=== PATIENT | female | born 1945 | race African-American/Black ===

== ENCOUNTER 2018-12-19 20:37 | Inpatient (IN) | payer MEDICARE ==
[~2018-12-19] VITALS: Ht 167.6 cm; Wt 92.5 kg
[2018-12-20] MEDS ORDERED: MAGNESIUM HYDROXIDE 30 ML UDC PO PRN (01:30)
[2018-12-20] MEDS ORDERED: MAG HYDROX/AL HYDROX/SIMETH 30 ML UDC PO PRN (01:30)
[2018-12-20] MEDS ORDERED: LOSA1TAB42 PO (01:42)
[2018-12-20] MEDS ORDERED: HYDR-4384 PO (01:42)
[2018-12-20] MEDS ORDERED: METO25TA6 PO (01:42)
[2018-12-20] MEDS ORDERED: BACL10TA PO (01:42)
[2018-12-20] MEDS ORDERED: ATOR40TA PO (01:42)
[2018-12-20] MEDS ORDERED: HYDR12.5 PO (01:42)
[2018-12-20] MEDS ORDERED: MECL-102 PO (01:42)
[2018-12-20] MEDS ORDERED: DOCU100C36 PO (01:42)
[2018-12-20] MEDS ORDERED: ASPI-605 PO (01:42)
[2018-12-20 02:42] VITALS: BP 115/65
--- NOTE | 2018-12-20 04:45 | NUR ---
ADMISSION NOTES: ADMITTED THIS 73 Y/O MALE FROM [facility] , PATIENT INTIALLY FROM HOME, AND FIRST CAME ON ADMISSION ,PT. ADMITTED FOR VOLUNTARY STATUS, PT. BEHAVIOR WAS VERY BIZARRE,AGGRESSIVE , UNCOOPERTIVE DISORGNIZED ,CONFUSED,DISTRACTIBLE, NOT FOLLOWING ANY REDIRECTIONS AND INSTRUCTIONS. CHARGE NURSE AND NURSING SHIPPING RECEIVING CLERK CALLED CRISIS INTERLACER TO REEVALUATE PATIENT. CRISIS INTERLACER ASSESSED THE PATIENT AND PUT ON 5150 HOLD FOR DTS/DTO. PER HOLD PATIENT AGGRESSIVE TOWARDS HER FAMILY AND CAREGIVER ,PT. THROWS OBJECTS WITH THE INTENT TO HURT THOSE AROUND HER, PT. HAS HX OF LOCKING HERSELF IN ROOMS DUE TO HER PARANOIA UPON FACE TO FACE ASSESSMENT PATIENT IS A&O X-1,2 UNCOOPERTIVE, CONFUSED , PARANOIA , AGGRESSIVE ,EASILY AGITATED , EASILY DISTRACTIBLE, RESPONDING TO INTERNAL STIMULI , PT.IS POOR HISTORIAN, POOR INSIGHT ,POOR JUDGEMENT ,V/S WNL, NO ACUTE DISTRESS NOTED , AWARE AND NOTIFIED OF THE ADMISSION , PT. REFUSED SKIN ASSESSMENT ENCOURAGED EXPLAINED RISKS AND BENEFITS BUT STILL REFUSED, ENCOURAGED PT. VERBALIZED ANY FEELING CONCERN TO STAFF, ORIENT TO UNIT POLICY, WILL CONTINUE TO MONITOR FOR Q15, CONTRACT FOR SAFETY AND BEHAVIOR.
--- NOTE | 2018-12-20 06:45 | NUR ---
GPS RN NOTES : PT. REFUSED SKIN ASSESSMENT ,ENCOURAGED EXPLINED RISKS AND BENEFITS ,STILL REFUSED
[2018-12-20 08:00] VITALS: BP 125/63
[2018-12-20] MEDS: HYDROCODONE/APAP 5/325MG 1 EACH TABLET PO PRN (13:05)
[2018-12-20 13:07] LABS: BASOPHILS % (AUTO) 0.9 % (0.0-2.0); EOSINOPHILS % (AUTO) 3.4 % (0.0-6.0); HEMATOCRIT 32 % (33-45); HEMOGLOBIN 10.3 g/dL (11.5-14.8); LYMPHOCYTES # (AUTO) 1.4 /CMM (0.8-4.8); LYMPHOCYTES % (AUTO) 25.1 % (20.0-44.0); MEAN CORPUSCULAR HGB CONC 33 g/dl (31.0-36.0); MEAN CORPUSCULAR VOLUME 88 fL (82-100); MONOCYTES # (AUTO) 0.7 /CMM (0.1-1.30); MONOCYTES % (AUTO) 12.5 % (2.0-12.0); NEUTROPHILS # (AUTO) 3.1 /CMM (1.8-8.9); NEUTROPHILS % (AUTO) 58.1 % (43.0-81.0); PLATELET COUNT (AUTO) 201 /CMM (150-450); RED BLOOD CELL COUNT(AUTO) 3.61 MIL/uL (4.0-5.2); WHITE BLOOD COUNT (AUTO) 5.4 K/uL (4.3-11.0)
[2018-12-20 13:16] LABS: CHOLESTEROL 166 mg/dL (<200); HDL CHOLESTEROL 66 mg/dL (40-60); LDL 84 mg/dL (0-99); TRIGLYCERIDES 73 mg/dL (30-150)
[2018-12-20 13:22] LABS: CALCIUM, SERUM 10.6 mg/dL (8.5-10.1); CARBON DIOXIDE 27 mmol/L (21-32); CHLORIDE 109 mmol/L (98-107); CREATININE 1.1 mg/dL (0.6-1.3); GLUCOSE 106 mg/dL (74-106); POTASSIUM 3.9 mmol/L (3.5-5.1); SODIUM SERUM 143 mmol/L (136-145); UREA NITROGEN, BLOOD 18 mg/dL (7-18)
[2018-12-20] MEDS: MECLIZINE HCL 25 MG TABLET PO SCH ×3 (14:08→21:41)
[2018-12-20 14:20] LABS: ALBUMIN 3.5 g/dL (3.4-5.0); BILIRUBIN,DIRECT 0.1 mg/dL (0.0-0.2); BILIRUBIN,TOTAL 0.3 mg/dL (0.2-1.0); TOTAL PROTEIN, SERUM 7.8 g/dL (6.4-8.2)
[2018-12-20 16:00] VITALS: BP 134/81
[2018-12-20] MEDS: DOCUSATE SODIUM 100 MG CAPSULE PO SCH (17:12)
[2018-12-20] MEDS: DIVALPROEX SODIUM 125 MG TABLET.DR PO SCH (17:13)
[2018-12-20] MEDS: METOPROLOL TARTRATE 25 MG TABLET PO SCH (17:13)
[2018-12-20 20:15] VITALS: BP 158/86
[2018-12-20] MEDS: DIVALPROEX SODIUM 250 MG TABLET.DR PO SCH (21:41)
[2018-12-20] MEDS: TEMAZEPAM 7.5 MG CAPSULE PO PRN (21:41)
[2018-12-20] MEDS: BACLOFEN (10 MG) 10 MG TABLET PO SCH (21:41)
[2018-12-20] MEDS ORDERED: MOXI3DRO13 RIGHTEYE (22:03)
[2018-12-20] MEDS ORDERED: KETO5DRO39 RIGHTEYE (22:03)
[2018-12-20] MEDS ORDERED: PRED5DRO17 RIGHTEYE (22:03)
--- NOTE | 2018-12-21 06:23 | NUR ---
WILL ENDORSE TO AM PRIMARY NURSE ABOUT THE EYEDROPS THAT NEEDS TO BE RECONCILED.PER PATIENT SON ,PATIENT HAD HER RIGHT EYE CATARACT SURGERY LAST November.
--- NOTE | 2018-12-21 06:34 | NUR ---
Refused weekly skin assessment. Offered x3 and still refused.
[2018-12-21 08:00] VITALS: BP 136/90
[2018-12-21] MEDS: HYDROCHLOROTHIAZIDE 25 MG TABLET PO SCH (08:44)
[2018-12-21] MEDS: DIVALPROEX SODIUM 125 MG TABLET.DR PO SCH ×2 (08:45→16:19)
[2018-12-21] MEDS: LOSARTAN POTASSIUM 50 MG TABLET PO SCH (08:45)
[2018-12-21] MEDS: DOCUSATE SODIUM 100 MG CAPSULE PO SCH ×2 (08:45→16:19)
[2018-12-21] MEDS: METOPROLOL TARTRATE 25 MG TABLET PO SCH ×2 (08:49→16:20)
[2018-12-21] MEDS: ASPIRIN EC 81 MG TABLET.DR PO SCH (08:53)
[2018-12-21] MEDS: MECLIZINE HCL 25 MG TABLET PO SCH ×4 (08:56→21:22)
--- NOTE | 2018-12-21 11:59 | NUR ---
NISHI contacted pts paul Cole [phone] for discharge planning and collateral information. Son stated pt needs SNF placement as she is unable to care for herself at home.
[2018-12-21 12:23] LABS: BASOPHILS % (AUTO) 0.5 % (0.0-2.0); EOSINOPHILS % (AUTO) 2.4 % (0.0-6.0); HEMATOCRIT 32 % (33-45); HEMOGLOBIN 10.4 g/dL (11.5-14.8); LYMPHOCYTES # (AUTO) 1.3 /CMM (0.8-4.8); MEAN CORPUSCULAR HGB CONC 33 g/dl (31.0-36.0); MEAN CORPUSCULAR VOLUME 88 fL (82-100); MONOCYTES # (AUTO) 0.7 /CMM (0.1-1.30); MONOCYTES % (AUTO) 11.7 % (2.0-12.0); NEUTROPHILS # (AUTO) 3.8 /CMM (1.8-8.9); NEUTROPHILS % (AUTO) 63.4 % (43.0-81.0); PLATELET COUNT (AUTO) 205 /CMM (150-450); RED BLOOD CELL COUNT(AUTO) 3.63 MIL/uL (4.0-5.2)
[2018-12-21 12:38] LABS: ALANINE AMINOTRANSFERASE 37 U/L (12-78); ALBUMIN 3.4 g/dL (3.4-5.0); ALKALINE PHOSPHATASE 76 U/L (46-116); ASPARTATE AMINOTRANSFERASE 31 U/L (15-37); BILIRUBIN,TOTAL 0.3 mg/dL (0.2-1.0); CALCIUM, SERUM 10.2 mg/dL (8.5-10.1); CARBON DIOXIDE 28 mmol/L (21-32); CHLORIDE 109 mmol/L (98-107); CREATININE 1.1 mg/dL (0.6-1.3); GLUCOSE 125 mg/dL (74-106); MAGNESIUM 2.1 mg/dL (1.8-2.4); PHOSPHORUS 2.6 mg/dL (2.5-4.9); POTASSIUM 3.6 mmol/L (3.5-5.1); SODIUM SERUM 146 mmol/L (136-145); TOTAL PROTEIN, SERUM 7.5 g/dL (6.4-8.2); UREA NITROGEN, BLOOD 16 mg/dL (7-18)
--- NOTE | 2018-12-21 12:40 | NUR ---
INITIAL DISCHARGE PLAN: Pt wishes to return home [address] [facility] [id number] . Per son Douglas [phone] pt needs SNF placement as pt is unable to care for herself at home. NISHI will help form a safe and proper discharge in collaboration with .
[2018-12-21 13:03] LABS: CHOLESTEROL 161 mg/dL (<200); HDL CHOLESTEROL 63 mg/dL (40-60); LDL 85 mg/dL (0-99); TRIGLYCERIDES 59 mg/dL (30-150)
[2018-12-21] MEDS: prednisoLONE ACETATE 1% SUSP 5 ML BOTTLE RIGHTEYE SCH ×3 (13:45→21:22)
[2018-12-21 16:00] VITALS: BP 109/70
[2018-12-21 18:26] LABS: APPEARANCE,URINE CLEAR (CLEAR); BILIRUBIN,URINE NEGATIVE (NEGATIVE); BLOOD, URINE NEGATIVE Ery/uL (NEGATIVE); COLOR,URINE YELLOW (YELLOW); KETONES,URINE TRACE (NEGATIVE); LEUKOCYTE ESTERASE ,URINE NEGATIVE (NEGATIVE); NITRITE, URINE NEGATIVE (NEGATIVE); PH,URINE 5.5 (5.0-8.0); PROTEIN,URINE 1+ mg/dl (NEGATIVE); UGLUCOSE NEGATIVE (NEGATIVE); UROBILINOGEN,URINE 0.2 EU/dL (0.2)
[2018-12-21 18:44] LABS: BACTERIA,URINE Rare /HPF (None Seen); RBC,URINE 0-2 /HPF (0-2); SQUAMOUS EPITHELIAL CELL,UR Few /HPF (None Seen); WBC,URINE 0-2 /HPF (0-3)
[2018-12-21 20:00] VITALS: BP 154/75
[2018-12-21] MEDS ORDERED: AMLO2.5T4 PO (20:06)
[2018-12-21] MEDS ORDERED: KETO5DRO83 RIGHTEYE (20:06)
[2018-12-21 20:08] VITALS: BP 154/75
[2018-12-21] MEDS: DIVALPROEX SODIUM 250 MG TABLET.DR PO SCH (21:20)
[2018-12-21] MEDS: BACLOFEN (10 MG) 10 MG TABLET PO SCH (21:21)
[2018-12-21] MEDS ORDERED: OLANZAPINE 5 MG TABLET PO SCH (22:00)
--- NOTE | 2018-12-21 22:00 | NUR ---
GPS LARRY NOTES REFUSED BLOOD SUGAR CHECK Addendum: 12/22/18 at 0603 by RYLEE ANGUIANO RN NO ACCU-CHECK ON THIS PATIENT.
[2018-12-22] MEDS: DOCUSATE SODIUM 100 MG CAPSULE PO SCH ×2 (08:50→17:48)
[2018-12-22] MEDS: HYDROCHLOROTHIAZIDE 25 MG TABLET PO SCH (08:58)
[2018-12-22] MEDS: LOSARTAN POTASSIUM 50 MG TABLET PO SCH (08:58)
[2018-12-22] MEDS: METOPROLOL TARTRATE 25 MG TABLET PO SCH ×2 (08:59→17:52)
[2018-12-22] MEDS: MECLIZINE HCL 25 MG TABLET PO SCH ×4 (08:59→21:06)
[2018-12-22] MEDS: DIVALPROEX SODIUM 125 MG TABLET.DR PO SCH ×2 (08:59→17:48)
[2018-12-22] MEDS ORDERED: KETOROLAC EYE 0.5% 3 ML BOTTLE RIGHTEYE SCH (09:00)
[2018-12-22] MEDS: AMLODIPINE BESYLATE 2.5 MG TABLET PO SCH (09:00)
[2018-12-22] MEDS ORDERED: OLANZAPINE 2.5 MG TABLET PO SCH (09:00)
[2018-12-22] MEDS: ASPIRIN EC 81 MG TABLET.DR PO SCH (09:02)
[2018-12-22] MEDS: prednisoLONE ACETATE 1% SUSP 5 ML BOTTLE RIGHTEYE SCH ×4 (09:02→21:07)
[2018-12-22] MEDS: HYDROCODONE/APAP 5/325MG 1 EACH TABLET PO PRN (10:26)
--- NOTE | 2018-12-22 10:58 | NUR ---
SNF REFERRALS: SW faxed SNF referrals to 1. [facility] Address: [address] [place] [address] F: [phone] Kita, tool procurement coordinator 2. [facility] Address: [address] [place] [address] F:[phone] Darshana tool procurement coordinator
--- NOTE | 2018-12-22 11:35 | NUR ---
SW received a call from Darshana, infection prevention coordinator at [facility] Address: [address] [facility], [place] [address] stating pt has been accepted upon evaluation. She stated she would be coming on Friday12/23/18 to assess pt.
[2018-12-22] MEDS: KETOROLAC RIGHTEYE SCH ×4 (12:29→21:07)
[2018-12-22 15:59] VITALS: BP 141/74
[2018-12-22 19:49] VITALS: BP 121/79
[2018-12-22 20:00] VITALS: BP 121/79
[2018-12-22] MEDS: BACLOFEN (10 MG) 10 MG TABLET PO SCH (21:07)
[2018-12-22] MEDS: DIVALPROEX SODIUM 250 MG TABLET.DR PO SCH (21:07)
[2018-12-22] MEDS: OLANZAPINE 5 MG TABLET PO SCH (21:18)
[2018-12-23 08:00] VITALS: BP 127/90
[2018-12-23] MEDS: OLANZAPINE 2.5 MG TABLET PO SCH (08:20)
[2018-12-23] MEDS: DOCUSATE SODIUM 100 MG CAPSULE PO SCH ×2 (08:20→16:44)
[2018-12-23] MEDS: ASPIRIN EC 81 MG TABLET.DR PO SCH (08:20)
[2018-12-23] MEDS: MECLIZINE HCL 25 MG TABLET PO SCH ×4 (08:23→20:14)
[2018-12-23] MEDS: HYDROCHLOROTHIAZIDE 25 MG TABLET PO SCH (08:24)
[2018-12-23] MEDS: AMLODIPINE BESYLATE 2.5 MG TABLET PO SCH (08:24)
[2018-12-23] MEDS: LOSARTAN POTASSIUM 50 MG TABLET PO SCH (08:24)
[2018-12-23] MEDS: prednisoLONE ACETATE 1% SUSP 5 ML BOTTLE RIGHTEYE SCH ×4 (08:25→20:15)
[2018-12-23] MEDS: KETOROLAC RIGHTEYE SCH ×4 (08:25→20:15)
[2018-12-23] MEDS: METOPROLOL TARTRATE 25 MG TABLET PO SCH ×2 (08:25→16:47)
[2018-12-23] MEDS: HYDROCODONE/APAP 5/325MG 1 EACH TABLET PO PRN (08:30)
[2018-12-23] MEDS ORDERED: NICOTINE PATCH (21MG) 21 MG PATCH.TD24 TD SCH (09:00)
[2018-12-23] MEDS: DIVALPROEX SODIUM 125 MG TABLET.DR PO SCH ×2 (09:11→16:44)
--- NOTE | 2018-12-23 12:12 | NUR ---
Social Work: Social work received voicemail from pts son Douglas [phone] requesting an update on pts possible discharge and placement. digital project manager social media designer notified that evaluation has been postponed until 12/24/18. Social work informed pts son regarding facility visit and evaluation. Informed pts son that evaluation has been postponed until 12/24/18. Social work will contact pts son when placement is verified.
[2018-12-23 16:00] VITALS: BP 99/53
[2018-12-23 19:57] VITALS: BP 161/89
[2018-12-23] MEDS: DIVALPROEX SODIUM 250 MG TABLET.DR PO SCH (22:33)
[2018-12-23] MEDS: OLANZAPINE 5 MG TABLET PO SCH (22:33)
[2018-12-23] MEDS: BACLOFEN (10 MG) 10 MG TABLET PO SCH (22:33)
[2018-12-24 08:00] VITALS: BP 139/98
[2018-12-24] MEDS: HYDROCHLOROTHIAZIDE 25 MG TABLET PO SCH ×2 (09:00→10:15)
[2018-12-24] MEDS: AMLODIPINE BESYLATE 2.5 MG TABLET PO SCH ×2 (09:00→10:15)
[2018-12-24] MEDS: prednisoLONE ACETATE 1% SUSP 5 ML BOTTLE RIGHTEYE SCH ×5 (09:00→20:19)
[2018-12-24] MEDS: KETOROLAC RIGHTEYE SCH ×5 (09:00→20:19)
[2018-12-24] MEDS: METOPROLOL TARTRATE 25 MG TABLET PO SCH ×3 (09:00→16:20)
[2018-12-24] MEDS: DOCUSATE SODIUM 100 MG CAPSULE PO SCH ×3 (09:00→16:20)
[2018-12-24] MEDS: MECLIZINE HCL 25 MG TABLET PO SCH ×5 (09:00→20:18)
[2018-12-24] MEDS: ASPIRIN EC 81 MG TABLET.DR PO SCH ×2 (09:00→10:14)
[2018-12-24] MEDS: LOSARTAN POTASSIUM 50 MG TABLET PO SCH ×2 (09:00→10:14)
[2018-12-24] MEDS: DIVALPROEX SODIUM 125 MG TABLET.DR PO SCH ×3 (09:00→16:20)
[2018-12-24] MEDS: OLANZAPINE 2.5 MG TABLET PO SCH ×2 (09:00→10:13)
--- NOTE | 2018-12-24 09:51 | NUR ---
GPS/RN-NOTES PATIENT REFUSED ALL DUE MEDS. DESPITE EXPLANATIONS RISK AND BENEFITS, STATED" IT'S TO MANY, I WILL NOT TAKE ANY MEDICATIONS AT ALL".OFFERED X3 ,PATIENTS GETS ANGRY AND SCREAM AND YELL AT THE DEVELOPMENT TEAM LEAD. Addendum: 12/24/18 at 1044 by MITCHELL GÓMEZ RN DR. WOLF MADE AWARE OF PATIENT REFUSAL AND SPOKE TO PATIENT AND THE PROMISE TO TAKE ALL MEDICATIONS. DR. WOLF ORDERED TO OFFER AGAIN ALL HER MEDICATIONS. DEVELOPMENT TEAM LEAD DISCARDED PREVIOUS MEDICATIONS AND WAS WITNESS BY THE CHARGE NURSE. DEVELOPMENT TEAM LEAD HAVE TO PULL MEDICATIONS AGAIN AND ADMINISTERED TO THE PATIENT.
--- NOTE | 2018-12-24 10:00 | NUR ---
GPS/RN-NOTES NOTED PATIENT HOARDING SPOONS AND PAPERS INCLUDING FOOD AND DRINKS,REFUSED AND GETS ANGRY WITH STAFF WHEN THEY CLEAN HER ROOM. EXPLAINED AND RE EDUCATE PATIENT AND FOLLOWS.
[2018-12-24 16:00] VITALS: BP 105/71
[2018-12-24] MEDS: LORAZEPAM 0.5 MG TABLET PO PRN (18:29)
--- NOTE | 2018-12-24 18:30 | NUR ---
GPS/RN-NOTES NOTED PATIENT WITH SUDDEN OUTBURST SCREAMING AND YELLING AT THE NURSE STATION. STATED" I'M GOING TO REPORT YOU ALL BECAUSE YOU ARE TRYING TO TAKE ME TO THE OTHER PLACE". REDIRECTED AND REORIENTED PATIENT. ATIVAN 0.5MG P.O GIVEN PRN ORDER. WILL CONT. MONITORING FOR SAFETY AND BEHAVIOR.
--- NOTE | 2018-12-24 19:02 | NUR ---
GPS/RN-NOTES PATIENT IN THE ROOM CALM INTERACTING WITH SON.NO ACUTE DISTRESS NOTED. WILL ENDORSE TO INCOMING NURSE FOR CONTINUITY OF CARE.
--- NOTE | 2018-12-24 19:19 | NUR ---
SITTING IN BED HAVING A VISITOR. CALM AND QUIET.
[2018-12-24 20:00] VITALS: BP 127/58
[2018-12-24] MEDS: BACLOFEN (10 MG) 10 MG TABLET PO SCH (21:06)
[2018-12-24] MEDS: DIVALPROEX SODIUM 250 MG TABLET.DR PO SCH (21:06)
[2018-12-24] MEDS: OLANZAPINE 5 MG TABLET PO SCH (21:07)
[2018-12-25] MEDS: TEMAZEPAM 7.5 MG CAPSULE PO PRN ×2 (03:43)
[2018-12-25 08:00] VITALS: BP 117/77
[2018-12-25] MEDS: HYDROCHLOROTHIAZIDE 25 MG TABLET PO SCH (08:40)
[2018-12-25] MEDS: LOSARTAN POTASSIUM 50 MG TABLET PO SCH (08:41)
[2018-12-25] MEDS: DIVALPROEX SODIUM 125 MG TABLET.DR PO SCH ×2 (08:41→16:48)
[2018-12-25] MEDS: ASPIRIN EC 81 MG TABLET.DR PO SCH (08:41)
[2018-12-25] MEDS: OLANZAPINE 2.5 MG TABLET PO SCH (08:41)
[2018-12-25] MEDS: DOCUSATE SODIUM 100 MG CAPSULE PO SCH ×2 (08:41→16:42)
[2018-12-25] MEDS: AMLODIPINE BESYLATE 2.5 MG TABLET PO SCH (08:41)
[2018-12-25] MEDS: METOPROLOL TARTRATE 25 MG TABLET PO SCH ×2 (08:41→16:43)
[2018-12-25] MEDS: KETOROLAC RIGHTEYE SCH ×4 (08:47→20:39)
[2018-12-25] MEDS: prednisoLONE ACETATE 1% SUSP 5 ML BOTTLE RIGHTEYE SCH ×4 (08:47→20:40)
[2018-12-25] MEDS: ACETAMINOPHEN 325 MG TABLET PO PRN (08:48)
--- NOTE | 2018-12-25 10:57 | NUR ---
Olga reached out to Darshana, administrative operations coordinator at [facility] Address: [address] [facility], [place] [address] . Pt has been accepted to facility. Social work will continue to plan for a safe and proper discharge. construction worker reached out to pt's son Douglas [phone] and informed him that pts mother has been accepted to facility, pending exact discharge date.
[2018-12-25] MEDS: MECLIZINE HCL 25 MG TABLET PO SCH ×4 (12:27→20:40)
[2018-12-25 16:00] VITALS: BP 120/71
[2018-12-25 20:00] VITALS: BP 116/88
--- NOTE | 2018-12-25 20:00 | NUR ---
GPS RN NOTES: PT. BEHAVIOR VERY AGGREESIVE, UNCOOPERTIVE , UNPREDICTABLE, HYPERVERBAL, ARGUING WITH STAFF MEMEBER YELLING SCREAMING, BANGING ARMS LEGS WITH BED SIDE RAILS , NOT FOLLOWING ANY REDIRECTION, ATIVAN 0.5 MG PO PRN GIVEN ,WILL CONTINUE TO MONITOR.
--- NOTE | 2018-12-25 20:00 | NUR ---
GPS RN NOTES: PT. BEHAVIOR VERY AGGREESIVE, UNCOOPERTIVE , UNPREDICTABLE, HYPERVERBAL, ARGUING WITH STAFF MEMEBER YELLING SCREAMING, BANGING ARMS LEGS WITH BED SIDE RAILS , OT FOLLOWING ANY REDIRECTION, ATIVAN 0.5 MG PO PRN GIVEN ,WILL CONTINUE TO MONITOR.
[2018-12-25] MEDS: LORAZEPAM 0.5 MG TABLET PO PRN (20:05)
[2018-12-25] MEDS: BACLOFEN (10 MG) 10 MG TABLET PO SCH (21:41)
[2018-12-25] MEDS: DIVALPROEX SODIUM 250 MG TABLET.DR PO SCH (21:41)
[2018-12-25] MEDS: OLANZAPINE 5 MG TABLET PO SCH (21:42)
[2018-12-26] MEDS: TEMAZEPAM 7.5 MG CAPSULE PO PRN (00:39)
--- NOTE | 2018-12-26 00:40 | NUR ---
GPS RN NOTES: PT. UNABLE TO SLEEP , VERY RESTLESS, RESTORIL 7.5 MG PO PRN GIVEN ,WILL CONTINUE TO MONITOR.
--- NOTE | 2018-12-26 07:07 | NUR ---
GPS RN NOTES: DURING SHIFT PT. BEHAVIOR VERY AGGREESIVE, UNCOOPERTIVE , UNPREDICTABLE, HYPERVERBAL, ARGUING WITH STAFF MEMEBER YELLING SCREAMING, NOT FOLLOWING ANY REDIRECTION,WILL CONTINUE TO MONITOR.
[2018-12-26 08:00] VITALS: BP 142/82
[2018-12-26] MEDS: HYDROCHLOROTHIAZIDE 25 MG TABLET PO SCH (08:24)
[2018-12-26] MEDS: LOSARTAN POTASSIUM 50 MG TABLET PO SCH (08:25)
[2018-12-26] MEDS: OLANZAPINE 2.5 MG TABLET PO SCH (08:25)
[2018-12-26] MEDS: DOCUSATE SODIUM 100 MG CAPSULE PO SCH ×2 (08:25→16:09)
[2018-12-26] MEDS: AMLODIPINE BESYLATE 2.5 MG TABLET PO SCH (08:26)
[2018-12-26] MEDS: METOPROLOL TARTRATE 25 MG TABLET PO SCH ×2 (08:26→16:11)
[2018-12-26] MEDS: DIVALPROEX SODIUM 125 MG TABLET.DR PO SCH ×2 (08:27→16:09)
[2018-12-26] MEDS: ASPIRIN EC 81 MG TABLET.DR PO SCH (08:27)
[2018-12-26] MEDS: MECLIZINE HCL 25 MG TABLET PO SCH ×4 (08:27→21:12)
[2018-12-26] MEDS: KETOROLAC RIGHTEYE SCH ×4 (08:29→21:13)
[2018-12-26] MEDS: prednisoLONE ACETATE 1% SUSP 5 ML BOTTLE RIGHTEYE SCH ×4 (08:29→21:13)
[2018-12-26 16:06] VITALS: BP 124/77
--- NOTE | 2018-12-26 19:32 | NUR ---
GPS RN NOTE, RECEIVED PATIENT AWAKE AND IN ROOM NO S/S OR COMPLAINTS OF PAIN AT THIS TIME. PATIENT IS DISPLAYING NO S/S OF APPARENT DISTRESS AT THIS TIME. PATIENT BREATHING IS UNLABORED WITH EQUAL RISE AND FALL OF THE CHEST. PATIENT IS ALERT AND ORIENTED X 3 ON ROOM AIR WITH A SPO2 OF 97%. PATIENT IS MED COMPLIANT, DISORGANIZED, HYPERVERBAL, COOPERATIVE, AND NEEDS REORIENTATION. PATIENT DENIES SUICIDE AND HOMICIDAL IDEATIONS AT THIS TIME. PATIENT ASSISTED WITH TURNING AND REPOSITIONING Q2HR AND PRN FOR COMFORT AND CIRCULATION. PATIENT HAS NO NEEDS AT THIS TIME. PATIENT EDUCATED ON THE USE OF THE CALL MUNIZ. PATIENT BED SIDE RAILS ARE UP X 2 FOR SAFETY, BED IS LOCKED AND LOW. WILL CONTINUE TO MONITOR AND MAINTAIN SAFETY Q15 MIN WITH THE HELP OF STAFF.
[2018-12-26 20:00] VITALS: BP 108/58
[2018-12-26] MEDS: BACLOFEN (10 MG) 10 MG TABLET PO SCH (21:12)
[2018-12-26] MEDS: OLANZAPINE 5 MG TABLET PO SCH (21:12)
[2018-12-26] MEDS: DIVALPROEX SODIUM 250 MG TABLET.DR PO SCH (21:12)
[2018-12-26] MEDS: HYDROCODONE/APAP 5/325MG 1 EACH TABLET PO PRN (23:55)
--- NOTE | 2018-12-26 23:55 | NUR ---
GPS RN NOTE, PATIENT HAS A COMPLAINT OF LOWER BACK PAIN AT 7 OUT 10 ON THE PAIN SCALE AND IS REQUESTING NORCO AT THIS TIME. PATIENT VITAL SIGNS ARE STABLE. GAVE NORCO 5-325 1 TAB PO Q6HR PRN ORDERED. WILL REASSESS PAIN AND I WILL CONTINUE TO MONITOR THIS PATIENT.
[2018-12-27 08:00] VITALS: BP 127/77
[2018-12-27] MEDS: ASPIRIN EC 81 MG TABLET.DR PO SCH (08:32)
[2018-12-27] MEDS: DOCUSATE SODIUM 100 MG CAPSULE PO SCH ×2 (08:32→16:13)
[2018-12-27] MEDS: DIVALPROEX SODIUM 125 MG TABLET.DR PO SCH ×2 (08:32→16:13)
[2018-12-27] MEDS: MECLIZINE HCL 25 MG TABLET PO SCH ×4 (08:32→21:04)
[2018-12-27] MEDS: METOPROLOL TARTRATE 25 MG TABLET PO SCH ×2 (08:33→16:13)
[2018-12-27] MEDS: HYDROCHLOROTHIAZIDE 25 MG TABLET PO SCH (08:33)
[2018-12-27] MEDS: AMLODIPINE BESYLATE 2.5 MG TABLET PO SCH (08:33)
[2018-12-27] MEDS: OLANZAPINE 2.5 MG TABLET PO SCH (08:33)
[2018-12-27] MEDS: LOSARTAN POTASSIUM 50 MG TABLET PO SCH (08:34)
[2018-12-27] MEDS: prednisoLONE ACETATE 1% SUSP 5 ML BOTTLE RIGHTEYE SCH ×4 (08:35→21:05)
[2018-12-27] MEDS: KETOROLAC RIGHTEYE SCH ×4 (08:43→21:05)
[2018-12-27] MEDS: HYDROCODONE/APAP 5/325MG 1 EACH TABLET PO PRN (12:12)
[2018-12-27 16:03] VITALS: BP 136/80
--- NOTE | 2018-12-27 19:30 | NUR ---
GPS RN NOTE, RECEIVED PATIENT AWAKE AND IN ROOM NO S/S OR COMPLAINTS OF PAIN AT THIS TIME. PATIENT IS DISPLAYING NO S/S OF APPARENT DISTRESS AT THIS TIME. PATIENT BREATHING IS UNLABORED WITH EQUAL RISE AND FALL OF THE CHEST. PATIENT IS ALERT AND ORIENTED X 3 ON ROOM AIR WITH A SPO2 OF 96%. PATIENT IS MED COMPLIANT, DISORGANIZED, HYPERVERBAL, UNCOOPERATIVE AT TIMES, AND NEEDS REORIENTATION. PATIENT DENIES SUICIDE AND HOMICIDAL IDEATIONS AT THIS TIME. PATIENT ASSISTED WITH TURNING AND REPOSITIONING Q2HR AND PRN FOR COMFORT AND CIRCULATION. PATIENT HAS NO NEEDS AT THIS TIME. PATIENT EDUCATED ON THE USE OF THE CALL MUNIZ. PATIENT BED SIDE RAILS ARE UP X 2 FOR SAFETY, BED IS LOCKED AND LOW. WILL CONTINUE TO MONITOR AND MAINTAIN SAFETY Q15 MIN WITH THE HELP OF STAFF.
[2018-12-27 19:33] VITALS: BP 107/59
[2018-12-27] MEDS: DIVALPROEX SODIUM 250 MG TABLET.DR PO SCH (21:04)
[2018-12-27] MEDS: BACLOFEN (10 MG) 10 MG TABLET PO SCH (21:04)
[2018-12-27] MEDS: OLANZAPINE 5 MG TABLET PO SCH (21:04)
[2018-12-28 08:00] VITALS: BP 150/76
[2018-12-28 08:39] VITALS: BP 150/76
[2018-12-28] MEDS: prednisoLONE ACETATE 1% SUSP 5 ML BOTTLE RIGHTEYE SCH ×4 (08:47→21:13)
[2018-12-28] MEDS: KETOROLAC RIGHTEYE SCH ×4 (08:47→21:10)
[2018-12-28] MEDS: DIVALPROEX SODIUM 125 MG TABLET.DR PO SCH ×2 (08:50→17:30)
[2018-12-28] MEDS: DOCUSATE SODIUM 100 MG CAPSULE PO SCH ×2 (08:51→17:30)
[2018-12-28] MEDS: LOSARTAN POTASSIUM 50 MG TABLET PO SCH (08:51)
[2018-12-28] MEDS: AMLODIPINE BESYLATE 2.5 MG TABLET PO SCH (08:52)
[2018-12-28] MEDS: METOPROLOL TARTRATE 25 MG TABLET PO SCH ×2 (08:53→17:31)
[2018-12-28] MEDS: ASPIRIN EC 81 MG TABLET.DR PO SCH (08:53)
[2018-12-28] MEDS: HYDROCHLOROTHIAZIDE 25 MG TABLET PO SCH (08:53)
[2018-12-28] MEDS: MECLIZINE HCL 25 MG TABLET PO SCH ×4 (08:54→21:14)
[2018-12-28] MEDS: OLANZAPINE 2.5 MG TABLET PO SCH (08:54)
--- NOTE | 2018-12-28 13:10 | NUR ---
Social work received conformation for pts discharge as of 12/29/18, social work will continue to form safe and proper discharge.
[2018-12-28] MEDS: ACETAMINOPHEN 325 MG TABLET PO PRN (13:17)
[2018-12-28 16:00] VITALS: BP 118/63
[2018-12-28 19:45] VITALS: BP 111/59
[2018-12-28] MEDS: DIVALPROEX SODIUM 250 MG TABLET.DR PO SCH (21:14)
[2018-12-28] MEDS: BACLOFEN (10 MG) 10 MG TABLET PO SCH (21:14)
[2018-12-28] MEDS: OLANZAPINE 5 MG TABLET PO SCH (21:14)
[2018-12-28] MEDS: TEMAZEPAM 7.5 MG CAPSULE PO PRN (21:57)
[2018-12-29 08:01] VITALS: BP 128/56
[2018-12-29] MEDS: OLANZAPINE 2.5 MG TABLET PO SCH (08:55)
[2018-12-29] MEDS: ASPIRIN EC 81 MG TABLET.DR PO SCH (08:55)
[2018-12-29] MEDS: MECLIZINE HCL 25 MG TABLET PO SCH ×2 (08:55→12:16)
[2018-12-29] MEDS: DIVALPROEX SODIUM 125 MG TABLET.DR PO SCH (08:55)
[2018-12-29] MEDS: DOCUSATE SODIUM 100 MG CAPSULE PO SCH (08:55)
[2018-12-29] MEDS: KETOROLAC RIGHTEYE SCH ×2 (08:57→12:16)
[2018-12-29] MEDS: prednisoLONE ACETATE 1% SUSP 5 ML BOTTLE RIGHTEYE SCH ×2 (08:58→12:16)
[2018-12-29] MEDS: HYDROCHLOROTHIAZIDE 25 MG TABLET PO SCH (08:59)
[2018-12-29 09:00] VITALS: BP 128/68
[2018-12-29] MEDS: LOSARTAN POTASSIUM 50 MG TABLET PO SCH (09:00)
[2018-12-29] MEDS: METOPROLOL TARTRATE 25 MG TABLET PO SCH (09:00)
[2018-12-29] MEDS: AMLODIPINE BESYLATE 2.5 MG TABLET PO SCH (09:00)
--- NOTE | 2018-12-29 13:29 | NUR ---
GPS/RN-NOTES PATIENT WAS DISCHARGE TO [facility] TODAY. DR. WOLF AND DR. NOBLE AWARE AND AGREES OF PATIENT DISCHARGE WITH ORDERS. REPORT WAS GIVEN TO MAGGIE ( EXTRUSION MANAGER). PATIENT DID NOT VERBALIZE SI/HI,DENIES VISUAL/AUDITORY HALLUCINATIONS AT THE TIME OF DISCHARGE. PER SW, PT. DIANE ANDREWS AWARE OF THE DISCHARGE. PATIENT LEFT THE UNIT IN STABLE CONDITION ALERT ORIENTED X2 AMBULATORY WITH STEADY GAIT.PT. LEFT WITH ALL BELONGINGS.AVIAN KEEPER BY AMBULANCE VIA GURNEY WITH TWO STAFF ASSIST.
--- NOTE | 2018-12-29 13:36 | NUR ---
DISCHARGE NOTE: Pt was discharged at 1:00pm via [facility] ambulance trip#[id number] to [facility] ([facility] [address] [facility] [id number] . Pts Son Douglas [phone] has been notified. Pts mood was anxious with congruent affect. Pt denied visual/auditory hallucinations and denied suicidal/homicidal ideation. Pt will be under the care of Chief Guard: Dr. Nando Enriquez Address: [address] [place] [address] [address], [place] [address] and Psychiatrist: Psychiatrist: Dr. Gaytan [address] [facility] [address] [address] [phone]. The multidisciplinary exitcare form was done, printed, signed, and given to the patient.
== END 2018-12-29 14:39 | DRG 885 ==
LOC: GPS 23:37
PROVIDERS: ADMIT Psychiatry & Neurology Psychosomatic Medicine
DX: F25.0 Schizoaffective disorder, bipolar type (principal); M62.82 Rhabdomyolysis; E78.5 Hyperlipidemia, unspecified; I10 Essential (primary) hypertension; E11.9 Type 2 diabetes mellitus without complications; F29 Unspecified psychosis not due to a substance or known physiological condition; T46.6X5A Adverse effect of antihyperlipidemic and antiarteriosclerotic drugs, initial encounter; Y92.129 Unspecified place in nursing home as the place of occurrence of the external cause
CPT/HCPCS: 36415; 80048-TC; 80053-TC; 80061-TC; 80076-TC; 80164-TC; 81000-TC; 82962-TC; 83735-TC; 84100-TC; 84439-TC; 84443-TC; 85025-TC; 87081-TC; 87086-TC; J8597